=== PATIENT | male | born 1995 | race African-American/Black ===

== ENCOUNTER 2017-09-09 10:21 | Emergency (ER) | payer SELFPAY ==
[2017-09-09 10:27] VITALS: BP 140/93; BMI 21.3
--- NOTE | 2017-09-09 11:43 | DR.GENAD ---
HPI - PCP Primary Care Physician: NFSahil - HPI Comment HPI Comment: PAIN GETTING WORSE. NO FEVER OR DYSURIA. PATIENT DENIES TRAUMA. - Complaint/Symptoms Chief Complaint Doctors Comments: LEFT FLANK PAIN WITH NAUSEA TIMES 6 DAYS. Chief Complaint:: PT. C/O LEFT SIDE HURTING WELL NAUSEA. PT. STATES HE HAD A BOWEL MOVEMENT ON FRIDAY AND SAID HE THOUGHT HE SEEN A WORM IN HIS STOOL. PT. SAYS HE HAS LOST WEIGHT WELL WITIN THE PAST WEEK. PT. STATES HE HAS BEEN HAVING THE LEFT SIDED PAIN FOR QUIET SOME TIME. PT. UNABLE TO LIE ON THAT SIDE DUE TO PAIN. PT. SAYS THAT HE HAS FREQUENT BOWEL MOVEMENTS THROUGHOUT THE DAY, THEY ARE NORMAL BM'S, JUST A LOT OF THEM. - Nurses notes reviewed Nurses Notes Review: Yes - Source History Provided: Patient - Mode of Arrival Mode of Arrival: Ambulatory - Timing Onset of Chief Complaint: 09/03/17 Came on: Suddenly - Duration Duration: Constant Duration: Days - Severity Severity: Moderate PMH - PMH Past Medical History: No Past Surgical History: No Surgical History: No History - Family History History of Family Medical Conditions: No - Social History Does patient currently use any type of tobacco product: Yes Have you used tobacco products in the last 12 months: Yes Type of Tobacco Use: Cigarettes Does any household member use tobacco: Yes Alcohol Use: None Do you use any recreational Drugs:: Yes (MARIJUANA) Lives With: Significant Other Lives Where: Home - infectious screening In the last 2 months have you had wt loss of >10#?: NO Have you had fever, night sweats or hemotysis?: No Have you traveled outside the country in the last 6 months?: No Isolation: Standard ROS - Review of Systems Constitutional: No Symptoms Reported Eyes: No Symptoms Reported ENTM: No Symptoms Reported Respiratoy: No Symptoms Reported Cardiovascular: No Symptoms Reported Gastrointestinal/Abdominal: Nausea, Other (LEFT FLANK PAIN.) Genitourinary: No Symptoms Reported Neurological: No Symptoms Reported Musculoskeletal: No Symptoms Reported Integumentary: No Symptoms Reported Hematologic/Lymphatic: No Symptoms Reported Endocrine: No Symptoms Reported All Other Systems: Reviewed and Negative PE - Vital Signs Vitals: Temperature 98.3 F Pulse Rate 74 Respiratory Rate 17 Blood Pressure 140/93 O2 Sat by Pulse Oximetry 95 - General Limitations: No Limitations General Appearance: Alert - Head Head Exam: Normal Inspection - Eyes Eye exam: Normal Appearance - ENT ENT Exam: Normal Exam TM/Canal Exam: Bilateral Normal Nose Exam: Normal Nose Exam Mouth Exam: Normal Inspection Throat Exam: Normal Inspection - Neck Neck Exam: Trachea Midline - Chest Chest Inspection: Symmetric Chest Wall Rise - Respiratory Respiratory Exam: Normal Lung Sounds Bilat Respiratory Exam: Bilateral Clear to Auscultation - Cardiovascular Cardiovascular Exam: Regular Rate, Normal Rhythm, Normal Heart Sounds - Abdominal Exam Abdominal Exam: Normal Bowel Sounds, Soft, Tenderness Abdominal Tenderness: LUQ, Moderate - Extremities Extremities Exam: Normal Inspection - Back Back Exam: (L) CVA Tenderness - Neurologic Neurological Exam: Alert, Oriented X3 - Psychiatric Psychiatric Exam: Normal Affect, Normal Mood - Skin Skin Exam: Normal Color MDM - Differential Diagnosis Differential Diagnosis: LEFT FLANK PAIN, ABDOMINAL PAIN Course - Treatment Treatment: SEE ORDERS - Education/Counseling Education/Counseling: Patient, Education Educated On: Diagnosis, Needs for Follow Up ROR - Labs Reviewed Laboratory Results Reviewed?: Yes Result Diagrams: 09/09/17 12:00 09/09/17 12:00 Laboratory: WBC 7.4 X10^3/uL (3.6-10.0) 09/09/17 12:00 RBC 5.15 X10^6/uL (4.7-6.0) 09/09/17 12:00 Hgb 14.8 g/dL (13.5-18.0) 09/09/17 12:00 Hct 43.9 % (42.0-54.0) 09/09/17 12:00 MCV 85.3 fL (80.0-100.0) 09/09/17 12:00 MCH 28.8 pg (27.0-34.0) 09/09/17 12:00 MCHC 33.7 g/dL (33.0-35.0) 09/09/17 12:00 RDW 13.5 % (11.6-16.5) 09/09/17 12:00 Plt Count 237 X10^3/uL (150.0-450.0) 09/09/17 12:00 MPV 8.6 fL (7.4-11.0) 09/09/17 12:00 Neut % 54.8 % (42.0-75.0) 09/09/17 12:00 Lymph % 35.5 % (21.0-51.0) 09/09/17 12:00 [place] % 7.2 % (0.0-13.0) 09/09/17 12:00 Eos % 1.4 % (0.9-2.9) 09/09/17 12:00 Baso % 1.1 % (0.2-1.0) H 09/09/17 12:00 Neut # 4.0 x10^3/uL (2.2-4.8) 09/09/17 12:00 Lymph # 2.6 X10^3/uL (1.3-2.9) 09/09/17 12:00 [place] # 0.5 x10^3/uL (0.3-0.8) 09/09/17 12:00 Eos # 0.1 x10^3/uL (0.0-0.2) 09/09/17 12:00 Baso # 0.1 X10^3/uL (0.0-0.1) 09/09/17 12:00 Absolute Nucleated RBC 0.1 /100WBC 09/09/17 12:00 Sodium 140 mmol/L (136-145) 09/09/17 12:00 Corrected Sodium TNP 09/09/17 12:00 Potassium 4.1 mmol/L (3.5-5.1) 09/09/17 12:00 Chloride 103 mmol/L (98-107) 09/09/17 12:00 Carbon Dioxide 29.9 mmol/L (21-32) 09/09/17 12:00 BUN 10 mg/dL (7-18) 09/09/17 12:00 Creatinine 0.81 mg/dL (0.70-1.30) 09/09/17 12:00 Est GFR (MDRD) Af Amer > 60 (>60) 09/09/17 12:00 Est GFR (MDRD) Non-Af > 60 (>60) 09/09/17 12:00 Glucose 97 mg/dL (65-99) 09/09/17 12:00 Calcium 9.1 mg/dL (8.5-10.1) 09/09/17 12:00 Corrected Calcium TNP 09/09/17 12:00 Total Bilirubin 0.40 mg/dL (0.2-1.0) 09/09/17 12:00 AST 27 Units/L (15-37) 09/09/17 12:00 ALT 38 Units/L (12-78) 09/09/17 12:00 Alkaline Phosphatase 52 Units/L (46-116) 09/09/17 12:00 Total Protein 8.1 g/dL (6.4-8.2) 09/09/17 12:00 Albumin 4.4 g/dL (3.4-5.0) 09/09/17 12:00 Globulin 3.7 g/dL (2.5-4.5) 09/09/17 12:00 Albumin/Globulin Ratio 1.2 Ratio (1.1-2.1) 09/09/17 12:00 Amylase 64 Units/L (25-115) 09/09/17 12:00 Lipase 110 Units/L (73-393) 09/09/17 12:00 Specimen Type Clean catch urine 09/09/17 12:02 Urine Color Yellow (YELLOW) 09/09/17 12:02 Urine Appearance Clear (CLEAR) 09/09/17 12:02 Urine pH 7.0 (5.0 - 8.0) 09/09/17 12:02 Ur Specific [place] 1.005 (1.000-1.030) 09/09/17 12:02 Urine Protein Negative (NEGATIVE) 09/09/17 12:02 Urine Glucose (UA) Negative (NEGATIVE) 09/09/17 12:02 Urine Ketones Negative (NEGATIVE) 09/09/17 12:02 Urine Occult Blood Negative (NEGATIVE) 09/09/17 12:02 Urine Nitrite Negative (NEGATIVE) 09/09/17 12:02 Urine Bilirubin Negative (NEGATIVE) 09/09/17 12:02 Urine Urobilinogen Normal (NORMAL) 09/09/17 12:02 Ur Leukocyte Esterase Negative (NEGATIVE) 09/09/17 12:02 Urine RBC None seen /HPF (NEGATIVE) 09/09/17 12:02 Urine WBC None seen /HPF (NEGATIVE) 09/09/17 12:02 Ur Squamous Epith Cells Rare /HPF (NEGATIVE) 09/09/17 12:02 Urine Bacteria Negative /HPF (NEGATIVE) 09/09/17 12:02 Ur Culture Indicated? No/not indicated 09/09/17 12:02 - XRAY XRAY Interpreted by: Radiologist XRAY Findings: REPORT DISCUSS WITH PATIENT. - Diagnosis Discharge Problem: Left flank pain Abdominal pain Qualifiers: Abdominal location: left upper quadrant Qualified Code(s): R10.12 - Left upper quadrant pain - Discharge Plan Disposition: 01 HOME, SELF-CARE Condition: Stable Prescriptions: Ibuprofen [MOTRIN TAB 600 MG *] 600 mg PO TID PRN #20 tab PRN Reason: Pain/Inflammation Ranitidine HCl [ZANTAC TAB 150 MG *] 150 mg PO BID #60 tab - Follow ups/Referrals Follow ups/Referrals: MANINDER,Aury [Primary Care Provider] - 3 days LUX HERNÁNDEZ [STAFF PHYSICIAN] - 3 days - Instructions Instructions: Abdominal Pain, Adult, [id number] Additional Instructions: RETURN TO ED IF WORSE.
[2017-09-09 12:20] LABS: ALANINE AMINOTRANSFERASE 38 Units/L (12-78); ALBUMIN 4.4 g/dL (3.4-5.0); ALKALINE PHOSPHATASE 52 Units/L (46-116); AMYLASE 64 Units/L (25-115); ASPARTATE AMINO TRANSFERASE 27 Units/L (15-37); BASOPHILS # (AUTO) 0.1 X10^3/uL (0.0-0.1); BASOPHILS % (AUTO) 1.1 % (0.2-1.0); BLOOD UREA NITROGEN 10 mg/dL (7-18); CALCIUM 9.1 mg/dL (8.5-10.1); CARBON DIOXIDE 29.9 mmol/L (21-32); CHLORIDE 103 mmol/L (98-107); CREATININE 0.81 mg/dL (0.70-1.30); EOSINOPHILS # (AUTO) 0.1 x10^3/uL (0.0-0.2); EOSINOPHILS % (AUTO) 1.4 % (0.9-2.9); HEMATOCRIT 43.9 % (42.0-54.0); HEMOGLOBIN 14.8 g/dL (13.5-18.0); LIPASE 110 Units/L (73-393); LYMPHOCYTES # (AUTO) 2.6 X10^3/uL (1.3-2.9); LYMPHOCYTES % (AUTO) 35.5 % (21.0-51.0); MEAN CORPUSCULAR HEMOGLOBIN 28.8 pg (27.0-34.0); MEAN CORPUSCULAR HGB CONC 33.7 g/dL (33.0-35.0); MEAN CORPUSCULAR VOLUME 85.3 fL (80.0-100.0); MEAN PLATELET VOLUME 8.6 fL (7.4-11.0); MONOCYTES # (AUTO) 0.5 x10^3/uL (0.3-0.8); MONOCYTES % (AUTO) 7.2 % (0.0-13.0); NEUTROPHILS % (AUTO) 54.8 % (42.0-75.0); PLATELET COUNT 237 X10^3/uL (150.0-450.0); RED BLOOD COUNT 5.15 X10^6/uL (4.7-6.0); RED CELL DISTRIBUTION WIDTH 13.5 % (11.6-16.5); SODIUM 140 mmol/L (136-145); TOTAL PROTEIN 8.1 g/dL (6.4-8.2); WHITE BLOOD COUNT 7.4 X10^3/uL (3.6-10.0); eGFR BLACK RACES > 60 (>60); eGFR NON BLACK RACES > 60 (>60)
[2017-09-09 12:25] LABS: BILIRUBIN,URINE NEGATIVE (NEGATIVE); BLOOD/HEMOGLOBIN,URINE NEGATIVE (NEGATIVE); GLUCOSE, URINE NEGATIVE (NEGATIVE); KETONES,URINE NEGATIVE (NEGATIVE); LEUKOCYTE ESTERASE ,URINE NEGATIVE (NEGATIVE); NITRITES,URINE NEGATIVE (NEGATIVE); PROTEIN,URINE NEGATIVE (NEGATIVE); UROBILINOGEN,URINE NORMAL (NORMAL)
[2017-09-09 12:35] LABS: APPEARANCE,URINE CLEAR (CLEAR); BACTERIA,URINE NEGATIVE /HPF (NEGATIVE); COLOR,URINE YELLOW (YELLOW); RBC,URINE NONE SEEN /HPF (NEGATIVE); SQUAMOUS EPITHELIAL CELL,UR RARE /HPF (NEGATIVE)
--- NOTE | 2017-09-09 13:03 | CT ---
HISTORY: Left flank pain Study: Computed tomography of the abdomen and pelvis: Multiple axial images were obtained throughou t the abdomen pelvis. Intravascular contrast was not administered. Oral contrast was not administer ed. Radiation dose reduction techniques utilized. Comparison: None Findings: The lung bases are clear. The heart size is normal. A small hiatal hernia is present. No focal lesions of the liver or spleen are identified. The pancreas is normal in its appearance. T he gallbladder is normal in its appearance. The kidneys demonstrate no evidence of hydronephrosis, r enal calculi or mass. The ureters are nondilated. No evidence of ureteral calculi are noted. The b ladder is normal in its appearance. The prostate gland is normal. Seminal vesicles are symmetric. The abdominal aorta and inferior vena cava are normal. No evidence of retroperitoneal lymph node enl argement is identified. The stomach is nondistended. The small bowel is nondistended. No evidence of mesenteric adenopathy is identified. The cecum is normal in its appearance. The appendix is not identified. I see no jude dence of appendicitis. The ascending colon, transverse colon and descending colon are normal. No ev idence of free fluid is noted. Examination of the bone windows demonstrate no appreciable lumbar spondylosis. No acute bony abnorma lities are identified. IMPRESSION: 1. Negative computed tomography of the abdomen. 2. I see no evidence of renal or ureteral calculi. No evidence of hydronephrosis or ureteral dilata tion is noted. Reported By:
== END 2017-09-09 13:22 | disposition home or self-care (01) ==
LOC: ER 10:31
DX: R10.84 Generalized abdominal pain (principal); R11.0 Nausea
CPT/HCPCS: 36415; 74176; 80053; 81001; 82150; 83690; 85025; 99282